=== PATIENT | female | born 1990 | race American Indian/Alaskan Native ===

== ENCOUNTER 2021-02-13 01:02 | Outpatient (CLI) | payer BC, MEDICAID ==
[2021-02-13 01:41] VITALS: BP 113/55
[2021-02-13] MEDS ORDERED: LACTATED RINGERS 1,000 ML IV ONE (01:46)
[2021-02-13 02:41] LABS: Bacteria,Urine 1+ /HPF (Negative); Bilirubin,Urine NEG (Negative); Blood,Urine NEG (Negative); Color,Urine Yellow (Yellow); Mucus,Urine 3+ /HPF
[2021-02-13] MEDS ORDERED: ACETAMINOPHEN 500 MG TAB PO ONE (03:44)
== END 2021-02-13 03:25 | disposition home or self-care (01) ==
LOC: TRG 01:02 → APU 01:11 → TRG 03:25
PROVIDERS: ATTEND Obstetrics & Gynecology
DX: Z34.93 Encounter for supervision of normal pregnancy, unspecified, third trimester (principal); Z3A.30 30 weeks gestation of pregnancy
CPT/HCPCS: 59025; 81001